=== PATIENT | female | born 1955 | race Caucasian/White ===

== ENCOUNTER 2020-08-14 12:20 | Inpatient (IN) ==
[2020-08-14] MEDS ORDERED: Ondansetron 4 MG/2 ML VIAL ONE (12:52)
[2020-08-14] MEDS ORDERED: Clindamycin 900 MG/50 ML 900 MG/50 ML IV.SOLN IVPB ONE (12:52)
[2020-08-14] MEDS ORDERED: Lidocaine -MPF 2% 2 ML VIAL ONE (12:53)
[2020-08-14] MEDS ORDERED: Famotidine 20 MG/2 ML VIAL IVP ONE (12:56)
[2020-08-14] MEDS ORDERED: Acetaminophen IV 1,000 MG/100 ML INFUS..BTL IVPB ONE (12:57)
[2020-08-14] MEDS ORDERED: Ringers Solution, Lactated 1,000 ML IVC SCH ×2 (13:00→16:28)
[2020-08-14] MEDS ORDERED: Ethanol\\Acetic Acid\\Na Ace\\Ben 1,000 ML IRRIG.SOLN IR ONE (13:00)
[2020-08-14] MEDS ORDERED: *HR* Midazolam HCl 2 MG/2 ML VIAL ONE (13:02)
[2020-08-14] MEDS ORDERED: *HR* FentaNYL (PF) 100 MCG/2 ML VIAL ONE (13:02)
[2020-08-14] MEDS ORDERED: ROPIVACAINE/PF/NS 0.25% 1 EACH SYRINGE INTRAART ONE (13:02)
[2020-08-14] MEDS ORDERED: Ropivacaine/PF 0.5% 30 ML VIAL ONE (13:02)
[2020-08-14] MEDS ORDERED: Vancomycin 1,000 MG VIAL ONE ×2 (13:03→14:02)
[2020-08-14] MEDS ORDERED: *HR* OxyCODONE Immed Rel 5 MG TABLET PO PRN ×2 (13:14→16:28)
[2020-08-14] MEDS ORDERED: Ondansetron 4 MG/2 ML VIAL IVP PRN ×2 (13:14→16:28)
[2020-08-14] MEDS ORDERED: *HR* HYDROmorphone PF 0.5 MG/0.5 ML SYRINGE IVP PRN (15:55)
[2020-08-14 16:25] LABS: Hematocrit 43.7 % (35.3-44.9); Hemoglobin 13.9 g/dL (11.5-15.4)
[2020-08-14] MEDS ORDERED: Naloxone 0.4 MG/ML INJ IVP PRN (16:28)
[2020-08-14] MEDS ORDERED: *HR* Dextrose 50 % in Water (Vial) 50 ML VIAL IVP PRN (16:28)
[2020-08-14] MEDS ORDERED: Nitroglycerin Spray 4.9 GM BOTTLE TL PRN (16:28)
[2020-08-14] MEDS ORDERED: Clotrimazole/Betameth Dip CRM 45 APPL/45 GM TUBE TP PRN (16:28)
[2020-08-14] MEDS ORDERED: Fluticasone Propionate Nasal 50 MCG/SPRAY BOTTLE NS PRN (16:28)
[2020-08-14] MEDS ORDERED: *HR* Promethazine 25 MG/ML VIAL IM PRN (16:28)
[2020-08-14] MEDS ORDERED: MOM Conc 10 ML UD.LIQ PO PRN (16:28)
[2020-08-14] MEDS ORDERED: Dextrose Gel 15 GM/37.5 ML TUBE PO PRN ×2 (16:28)
[2020-08-14] MEDS ORDERED: Sennosides 8.6 MG TABLET PO PRN (16:28)
[2020-08-14] MEDS ORDERED: D5% in Water 1,000 ML IVC PRN (16:28)
[2020-08-14] MEDS ORDERED: Insulin LISPRO 300 UNITS/3 ML VIAL SQ SCH ×2 (16:30→21:00)
[2020-08-14] MEDS ORDERED: TOTAL JOINT MIXTURE (100ML) INTRAART ONE (16:55)
[2020-08-14] MEDS ORDERED: Povidone-Iodine 45 ML, Sodium Chloride IRRigation 1,000 ML IR ONE (16:55)
[2020-08-14] MEDS ORDERED: Ascorbic Acid 500 MG TABLET PO SCH (17:00)
[2020-08-14] MEDS: CeFAZolin 2 GM/120 ML BAG IVPB SCH (17:28)
[2020-08-14] MEDS ORDERED: *HR* Warfarin 7.5 MG TABLET PO SCH (18:00)
[2020-08-14] MEDS ORDERED: Topiramate 25 MG TABLET PO SCH (21:00)
[2020-08-14] MEDS ORDERED: (Canagliflozin [Invokana] 100 MG) PO SCH (21:00)
[2020-08-14] MEDS ORDERED: Loratadine 10 MG TABLET PO SCH (21:00)
[2020-08-14] MEDS: Gabapentin 300 MG CAPSULE PO SCH (21:23)
[2020-08-14] MEDS: HYDROcodone BIT/Homatropine 5 MG TABLET PO PRN (21:23)
[2020-08-14] MEDS ORDERED: Albuterol 2.5 MG/3 ML NEBULIZER IH PRN (22:00)
[2020-08-15] MEDS: CeFAZolin 2 GM/120 ML BAG IVPB SCH (00:56)
[2020-08-15] MEDS: HYDROcodone BIT/Homatropine 5 MG TABLET PO PRN (05:03)
[2020-08-15 05:57] LABS: Basophils % 0.1 %; Hematocrit 38.1 % (35.3-44.9); Immature Granulocytes % 0.7 % (0-4); Lymphocytes % 7.2 %; Mean Corpuscular HGB Conc 31.5 g/dL (31.6-35.5); Mean Corpuscular Hemoglobin 31.7 pg (28.0-33.3); Mean Corpuscular Volume 100.8 fL (83.0-100.0); Monocytes # 0.8 K/mcL (0.0-1.3); Monocytes % 5.2 %; Neutrophils # 12.5 K/mcL (1.6-8.9); Platelet Count 198 K/mcL (140-400); Red Blood Count 3.78 M/mcL (3.82-4.97); Red Cell Distribution Width 13.8 % (11.5-14.5); Segmented Neutrophils % 86.8 %; White Blood Count 14.5 K/mcL (4.3-11.1)
[2020-08-15 06:22] VITALS: BP 128/57
[2020-08-15 06:25] LABS: BUN/Creatinine Ratio 32 (6-26); Blood Urea Nitrogen 25 mg/dL (8-23); Calcium 8.5 mg/dL (8.6-10.3); Carbon Dioxide 21 mEq/L (23-29); Chloride 109 mEq/L (98-107); Glucose 240 mg/dL (70-105); Osmolality,Calculated 296 (280-300); Potassium 4.5 mEq/L (3.5-5.1); Sodium 137 mEq/L (136-145); eGFR For African Americans > 60 (> 60); eGFR For Non-African Americans > 60 (> 60)
[2020-08-15] MEDS ORDERED: *HR* Glimepiride 4 MG TABLET PO SCH (08:00)
[2020-08-15] MEDS: Gabapentin 300 MG CAPSULE PO SCH (08:51)
[2020-08-15] MEDS ORDERED: CANAGLIFLOZIN 200 MG PO SCH (09:00)
[2020-08-15] MEDS ORDERED: amLODIPine 5 MG TABLET PO SCH (09:00)
[2020-08-15] MEDS ORDERED: Multivit/Ca/Min/Fe/FA 1 TAB TABLET PO SCH (09:00)
[2020-08-15] MEDS ORDERED: Aspirin Enteric Coated 81 MG Tablet PO SCH (09:00)
[2020-08-15] MEDS ORDERED: Cholecalciferol (D-3) 1,000 UNIT (25MCG) TABLET PO SCH (09:00)
[2020-08-15] MEDS ORDERED: *HR* Enoxaparin 40 MG/0.4 ML SYRINGE SQ SCH (18:00)
[2020-08-15] MEDS ORDERED: *HR* Warfarin 3 MG TABLET PO SCH (18:00)
[2020-08-17] MEDS ORDERED: Vitamin B Complex/Vit C/Vit E 1 EACH TABLET PO SCH (09:00)
== END 2020-08-15 09:00 | disposition home or self-care (01) | DRG 467 ==
LOC: SAMDAY 12:20 → 3NENU 16:42
PROVIDERS: ADMIT Orthopaedic Surgery; ATTEND Orthopaedic Surgery